=== PATIENT | female | born 1980 | race Caucasian/White ===

== ENCOUNTER 2019-02-08 17:21 | Inpatient (IN) ==
--- NOTE | 2019-02-08 19:54 | DR.URINEF ---
HPI <JOSE MARTIN REEDER - Last Filed: 02/09/19 12:25> Time Seen Time Seen by Provider: 02/08/19 19:53 PCP Primary Care Physician: RAVEN HPI Comment HPI Comment: PATIENT SEEN AND WORK BY DR. MARES. SEE HER H&P. Complaint Chief Complaint:: PT. C/O RECURRENT UTI'S WHICH ARE NOT GETTING BETTER AFTER TWO ROUNDS OF ANTIBIOTICS. PT. STATES SHE HAS HAD A UTI FOR 4-5 WEEKS AND HAS BEEN ON CIPRO AND BACTRIM AND SHE IS NOT GETTING ANY BETTER. PT. STATES SHE NORMALLY HAS TO HAVE IV ANTIBIOTICS TO CLEAR UP THE UTI. PT. JUST FOUND OUT SHE WAS , HAD A POSITIVE AT HOME TEST. Source History Provided: Patient Mode of Arrival Mode of Arrival: Ambulatory Timing Onset of Chief Complaint: 01/04/19 <Diana Mares - Last Filed: 02/08/19 22:50> HPI Comment HPI Comment: Pt with recurrent uti treated three times in the past month or so - twice in [facility] and once here and still w/sxs now complicated by n/v/f/c for the past two days; she had a recent pos home [place] and is concerned because she miscarried two years ago after becoming septic w/a uti; say her pcp this morning with blood work but believes uti is resistant and she will need to be in hospital. 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) Lives With: Significant Other Lives Where: Home infectious screening In the last 2 months have you had wt loss of >10#?: NO Have you had fever, night sweats or hemotysis?: No Have you traveled outside the country in the last 6 months?: No Isolation: Standard <Diana Mares - Last Filed: 02/08/19 22:50> PM Past Medical History: Yes Past Medical History Comment: recurrent uti <Diana Vishnu - Last Filed: 02/08/19 22:50> Review of Systems Constitutional: See HPI, Fever and Malaise Eyes: No Symptoms Reported; negative See HPI, Eye Pain, Blurred Vision, Tearing, Discharge, Photophobia, Diplopia and Other ENTM: No Symptoms Reported, See HPI, Ear Pain, Pulling on Ears, Hearing Loss, Nose Discharge, Epistaxis, Mouth Swelling, Throat Pain and Tooth/Dental Pain Respiratoy: No Symptoms Reported, See HPI, Productive Cough, Moist Cough, Dry Cough, Hacking Cough, Barking Cough, Brassy Cough, Orthopnea, Stridor and Other; negative Non-Productive Cough, Short of Breath, Wheezing and Hemoptysis Cardiovascular: No Symptoms Reported, See HPI and Other; negative Chest Pain, Edema, Palpitations, Syncope, Cyanosis and Skin Mottling Gastrointestinal/Abdominal: See HPI, Abdominal Pain and Nausea Genitourinary: See HPI, Dysuria, Frequency and Pain Musculoskeletal: No Symptoms Reported Integumentary: No Symptoms Reported Hematologic/Lymphatic: No Symptoms Reported Psychiatric: Anxiety PE <JOSE MARTIN REEDER - Last Filed: 02/09/19 12:25> Vital Signs Vitals: Temperature 97.1 F Pulse Rate 79 Respiratory Rate 22 Blood Pressure [Left Arm] 109/60 Blood Pressure 108/72 O2 Sat by Pulse Oximetry 98 <Diana Mares - Last Filed: 02/08/19 22:50> Vital Signs Vitals: Temperature 97.1 F Pulse Rate 79 Respiratory Rate 22 Blood Pressure [Left Arm] 109/60 Blood Pressure 108/72 O2 Sat by Pulse Oximetry 98 General Limitations: No Limitations General Appearance: Alert, In No Apparent Distress and Anxious Head Head Exam: Normal Inspection and Atraumatic Eyes Eye exam: Normal Appearance and PERRL ENT ENT Exam: Normal Exam Neck Neck Exam: Normal Inspection Chest Chest Inspection: Normal Inspection Respiratory Respiratory Exam: Normal Lung Sounds Bilat Respiratory Exam: Bilateral: Clear to Auscultation Cardiovascular Cardiovascular Exam: Regular Rate and Normal Rhythm Abdominal Exam Abdominal Exam: Normal Inspection Abdominal Tenderness: Suprapubic and Mild Extremities Extremities Exam: Normal Inspection Back Back Exam: Normal Inspection, (R) CVA Tenderness and (L) CVA Tenderness Neurologic Neurological Exam: Alert, Oriented X3, CN II-XII Intact and Normal Gait Psychiatric Psychiatric Exam: Normal Affect Skin Skin Exam: Warm and Normal Color <Diana Mares - Last Filed: 02/08/19 22:50> Reevaluation 1st: Improved (goes outside twice during her stay, once to get emergency room clinician out of car and once with friend) ROR <JOSE MARTIN REEDER - Last Filed: 02/09/19 12:25> Labs Reviewed Result Diagrams: 02/09/19 09:02 02/09/19 09:02 Laboratory: 02/08/19 20:25 Urine,Clean Catch Urine Culture - Preliminary WBC 3.8 X10^3/uL (3.6-10.0) 02/08/19 20:20 RBC 4.10 X10^6/uL (3.5-5.4) 02/08/19 20:20 Hgb 11.9 g/dL (12.0-16.0) L 02/08/19 20:20 Hct 34.3 % (36.0-47.0) L 02/08/19 20:20 MCV 83.5 fL (80.0-100.0) 02/08/19 20:20 MCH 28.9 pg (27.0-34.0) 02/08/19 20:20 MCHC 34.6 g/dL (33.0-35.0) 02/08/19 20:20 RDW 15.6 % (11.6-16.5) 02/08/19 20:20 Plt Count 138 X10^3/uL (150.0-450.0) L 02/08/19 20:20 MPV 7.9 fL (7.4-11.0) 02/08/19 20:20 Neut % (Auto) 62.6 % (42.0-75.0) 02/08/19 20:20 Lymph % (Auto) 27.3 % (21.0-51.0) 02/08/19 20:20 Allen % (Auto) 9.0 % (0.0-13.0) 02/08/19 20:20 Eos % (Auto) 0.9 % (0.9-2.9) 02/08/19 20:20 Baso % (Auto) 0.2 % (0.2-1.0) 02/08/19 20:20 Neut # (Auto) 2.4 x10^3/uL (2.2-4.8) 02/08/19 20:20 Lymph # (Auto) 1.0 X10^3/uL (1.3-2.9) L 02/08/19 20:20 Allen # (Auto) 0.3 x10^3/uL (0.3-0.8) 02/08/19 20:20 Eos # (Auto) 0.0 x10^3/uL (0.0-0.2) 02/08/19 20:20 Baso # (Auto) 0.0 X10^3/uL (0.0-0.1) 02/08/19 20:20 Absolute Nucleated RBC 0.0 /100WBC 02/08/19 20:20 Sodium 137 mmol/L (136-145) 02/08/19 20:20 Corrected Sodium TNP 02/08/19 20:20 Potassium 4.1 mmol/L (3.5-5.1) 02/08/19 20:20 Chloride 103 mmol/L (98-107) 02/08/19 20:20 Carbon Dioxide 27.7 mmol/L (21-32) 02/08/19 20:20 BUN 10 mg/dL (7-18) 02/08/19 20:20 Creatinine 0.53 mg/dL (0.55-1.02) L 02/08/19 20:20 Est GFR (MDRD) Af Amer > 60 (>60) 02/08/19 20:20 Est GFR (MDRD) Non-Af > 60 (>60) 02/08/19 20:20 Glucose 103 mg/dL (65-99) H 02/08/19 20:20 Calcium 8.9 mg/dL (8.5-10.1) 02/08/19 20:20 Corrected Calcium 9.7 mg/dL (8.5-10.1) 02/08/19 20:20 Total Bilirubin 0.60 mg/dL (0.2-1.0) 02/08/19 20:20 AST 178 Units/L (15-37) H 02/08/19 20:20 ALT 264 Units/L (12-78) H 02/08/19 20:20 Alkaline Phosphatase 73 Units/L (46-116) 02/08/19 20:20 Total Protein 6.9 g/dL (6.4-8.2) 02/08/19 20:20 Albumin 3.0 g/dL (3.4-5.0) L 02/08/19 20:20 Globulin 3.9 g/dL (2.5-4.5) 02/08/19 20:20 Albumin/Globulin Ratio 0.8 Ratio (1.1-2.1) L 02/08/19 20:20 HCG, Quant 88448 mIU/mL (0-6) H 02/08/19 20:20 Specimen Type Clean catch urine 02/08/19 20:25 Urine Color Dark yellow (YELLOW) 02/08/19 20: Urine Appearance Cloudy (CLEAR) 02/08/19 20: Urine pH 6.5 (5.0 - 8.0) 02/08/19 20:25 Ur Specific [place] 1.020 (1.000-1.030) 02/08/19 20:25 Urine Protein 1+ (NEGATIVE) 02/08/19 20:25 Urine Glucose (UA) Negative (NEGATIVE) 02/08/19 20:25 Urine Ketones Negative (NEGATIVE) 02/08/19 20:25 Urine Occult Blood 1+ (NEGATIVE) 02/08/19 20:25 Urine Nitrite Positive (NEGATIVE) 02/08/19 20:25 Urine Bilirubin Negative (NEGATIVE) 02/08/19 20:25 Urine Urobilinogen 1+ (NORMAL) 02/08/19 20:25 Ur Leukocyte Esterase 3+ (NEGATIVE) 02/08/19 20:25 Urine RBC 5-10 /HPF (0-3) A 02/08/19 20:25 Urine WBC 30-50 /HPF (0-5) A 02/08/19 20:25 Ur Squamous Epith Cells Many /HPF (NEGATIVE) 02/08/19 20:25 Urine Bacteria 3+ /HPF (NEGATIVE) 02/08/19 20:25 Ur Culture Indicated? Yes/culture set up 02/08/19 20:25 <Diana Mares - Last Filed: 02/08/19 22:50> Labs Reviewed Laboratory Results Reviewed?: Yes Laboratory: 02/08/19 20:25 Urine,Clean Catch Urine Culture - Preliminary WBC 3.8 X10^3/uL (3.6-10.0) 02/08/19 20:20 RBC 4.10 X10^6/uL (3.5-5.4) 02/08/19 20:20 Hgb 11.9 g/dL (12.0-16.0) L 02/08/19 20:20 Hct 34.3 % (36.0-47.0) L 02/08/19 20:20 MCV 83.5 fL (80.0-100.0) 02/08/19 20:20 MCH 28.9 pg (27.0-34.0) 02/08/19 20:20 MCHC 34.6 g/dL (33.0-35.0) 02/08/19 20:20 RDW 15.6 % (11.6-16.5) 02/08/19 20:20 Plt Count 138 X10^3/uL (150.0-450.0) L 02/08/19 20:20 MPV 7.9 fL (7.4-11.0) 02/08/19 20:20 Neut % (Auto) 62.6 % (42.0-75.0) 02/08/19 20:20 Lymph % (Auto) 27.3 % (21.0-51.0) 02/08/19 20:20 Allen % (Auto) 9.0 % (0.0-13.0) 02/08/19 20:20 Eos % (Auto) 0.9 % (0.9-2.9) 02/08/19 20:20 Baso % (Auto) 0.2 % (0.2-1.0) 02/08/19 20:20 Neut # (Auto) 2.4 x10^3/uL (2.2-4.8) 02/08/19 20:20 Lymph # (Auto) 1.0 X10^3/uL (1.3-2.9) L 02/08/19 20:20 Allen # (Auto) 0.3 x10^3/uL (0.3-0.8) 02/08/19 20:20 Eos # (Auto) 0.0 x10^3/uL (0.0-0.2) 02/08/19 20:20 Baso # (Auto) 0.0 X10^3/uL (0.0-0.1) 11/25/19 20:20 Absolute Nucleated RBC 0.0 /100WBC 02/08/19 20:20 Sodium 137 mmol/L (136-145) 02/08/19 20:20 Corrected Sodium TNP 02/08/19 20:20 Potassium 4.1 mmol/L (3.5-5.1) 02/08/19 20:20 Chloride 103 mmol/L (98-107) 02/08/19 20:20 Carbon Dioxide 27.7 mmol/L (21-32) 02/08/19 20:20 BUN 10 mg/dL (7-18) 02/08/19 20:20 Creatinine 0.53 mg/dL (0.55-1.02) L 02/08/19 20:20 Est GFR (MDRD) Af Amer > 60 (>60) 02/08/19 20:20 Est GFR (MDRD) Non-Af > 60 (>60) 02/08/19 20:20 Glucose 103 mg/dL (65-99) H 02/08/19 20:20 Calcium 8.9 mg/dL (8.5-10.1) 02/08/19 20:20 Corrected Calcium 9.7 mg/dL (8.5-10.1) 02/08/19 20:20 Total Bilirubin 0.60 mg/dL (0.2-1.0) 02/08/19 20:20 AST 178 Units/L (15-37) H 02/08/19 20:20 ALT 264 Units/L (12-78) H 02/08/19 20:20 Alkaline Phosphatase 73 Units/L (46-116) 02/08/19 20:20 Total Protein 6.9 g/dL (6.4-8.2) 02/08/19 20:20 Albumin 3.0 g/dL (3.4-5.0) L 02/08/19 20:20 Globulin 3.9 g/dL (2.5-4.5) 02/08/19 20:20 Albumin/Globulin Ratio 0.8 Ratio (1.1-2.1) L 02/08/19 20:20 HCG, Quant 21007 mIU/mL (0-6) H 02/08/19 20:20 Specimen Type Clean catch urine 02/08/19 20:25 Urine Color Dark yellow (YELLOW) 02/08/19 20:25 Urine Appearance Cloudy (CLEAR) 02/08/19 20:25 Urine pH 6.5 (5.0 - 8.0) 02/08/19 20:25 Ur Specific [place] 1.020 (1.000-1.030) 02/08/19 20:25 Urine Protein 1+ (NEGATIVE) 02/08/19 20:25 Urine Glucose (UA) Negative (NEGATIVE) 02/08/19 20:25 Urine Ketones Negative (NEGATIVE) 02/08/19 20:25 Urine Occult Blood 1+ (NEGATIVE) 02/08/19 20:25 Urine Nitrite Positive (NEGATIVE) 02/08/19 20: Urine Bilirubin Negative (NEGATIVE) 02/08/19 20:25 Urine Urobilinogen 1+ (NORMAL) 02/08/19 20:25 Ur Leukocyte Esterase 3+ (NEGATIVE) 02/08/19 20:25 Urine RBC 5-10 /HPF (0-3) A 02/08/19 20:25 Urine WBC 30-50 /HPF (0-5) A 02/08/19 20:25 Ur Squamous Epith Cells Many /HPF (NEGATIVE) 02/08/19 20:25 Urine Bacteria 3+ /HPF (NEGATIVE) 02/08/19 20:25 Ur Culture Indicated? Yes/culture set up 02/08/19 20:25 Opioid <JOSE MARTIN REEDER - Last Filed: 02/09/19 12:25> Opioid Risk Tool Age (Tejinder box if 16-45): Yes History of Preadolescent Sexual Abuse: No Total: 1 Total Score Risk Category: Low Risk Copyright: Surinder ANDREWS predicting aberrant behaviors <Diana Mares - Last Filed: 02/08/19 22:50> Opioid Risk Tool Total: 0 Total Score Risk Category: Low Risk <JOSE MARTIN REEDER - Last Filed: 02/09/19 12:25> Diagnosis Discharge Problem: Pyelonephritis, Nausea, Elevated LFTs, Instructions Forms: Excuse From Work Patient Portal
[2019-02-08 20:26] LABS: BASOPHILS % (AUTO) 0.2 % (0.2-1.0); EOSINOPHILS % (AUTO) 0.9 % (0.9-2.9); HEMATOCRIT 34.3 % (36.0-47.0); HEMOGLOBIN 11.9 g/dL (12.0-16.0); LYMPHOCYTES % (AUTO) 27.3 % (21.0-51.0); MEAN CORPUSCULAR HEMOGLOBIN 28.9 pg (27.0-34.0); MEAN CORPUSCULAR HGB CONC 34.6 g/dL (33.0-35.0); MEAN CORPUSCULAR VOLUME 83.5 fL (80.0-100.0); MEAN PLATELET VOLUME 7.9 fL (7.4-11.0); MONOCYTES # (AUTO) 0.3 x10^3/uL (0.3-0.8); NEUTROPHILS # (AUTO) 2.4 x10^3/uL (2.2-4.8); NEUTROPHILS % (AUTO) 62.6 % (42.0-75.0); PLATELET COUNT 138 X10^3/uL (150.0-450.0); RED CELL DISTRIBUTION WIDTH 15.6 % (11.6-16.5); WHITE BLOOD COUNT 3.8 X10^3/uL (3.6-10.0)
[2019-02-08 20:34] LABS: BILIRUBIN,URINE NEGATIVE (NEGATIVE); BLOOD/HEMOGLOBIN,URINE 1+ (NEGATIVE); GLUCOSE, URINE NEGATIVE (NEGATIVE); KETONES,URINE NEGATIVE (NEGATIVE); LEUKOCYTE ESTERASE ,URINE 3+ (NEGATIVE); NITRITES,URINE POSITIVE (NEGATIVE); PH,URINE 6.5 (5.0 - 8.0); PROTEIN,URINE 1+ (NEGATIVE); UROBILINOGEN,URINE 1+ (NORMAL)
[2019-02-08 20:37] LABS: ALANINE AMINOTRANSFERASE 264 Units/L (12-78); ALKALINE PHOSPHATASE 73 Units/L (46-116); ASPARTATE AMINO TRANSFERASE 178 Units/L (15-37); BLOOD UREA NITROGEN 10 mg/dL (7-18); CALCIUM 8.9 mg/dL (8.5-10.1); CARBON DIOXIDE 27.7 mmol/L (21-32); CHLORIDE 103 mmol/L (98-107); COR CA(FOR HYPOALB) 9.7 mg/dL (8.5-10.1); CREATININE 0.53 mg/dL (0.55-1.02); SODIUM 137 mmol/L (136-145); TOTAL PROTEIN 6.9 g/dL (6.4-8.2); eGFR NON BLACK RACES > 60 (>60)
[2019-02-08 21:37] LABS: APPEARANCE,URINE CLOUDY (CLEAR); BACTERIA,URINE 3+ /HPF (NEGATIVE); COLOR,URINE DARK YELLOW (YELLOW); SQUAMOUS EPITHELIAL CELL,UR MANY /HPF (NEGATIVE)
[2019-02-08 21:47] LABS: HCG,QUANTITATIVE 96243 mIU/mL (0-6)
[2019-02-08] MEDS ORDERED: ZOFRAN INJ 4 MG VIAL IVP ONE (22:30)
[2019-02-08] MEDS ORDERED: ROCEPHIN VIAL 1 GRAM IV ONE (22:30)
[2019-02-08] MEDS ORDERED: ZOFRAN INJ 4 MG VIAL ONE (22:43)
[2019-02-08] MEDS ORDERED: ROCEPHIN VIAL 1 GRAM ONE (22:44)
[2019-02-08] MEDS: NS 1000 ML 1,000 ML IV SCH (23:20)
[2019-02-09] MEDS ORDERED: ZOFRAN INJ 4 MG VIAL IVP PRN (01:44)
[2019-02-09 02:12] VITALS: BMI 22.9
[2019-02-09] MEDS ORDERED: TYLENOL #3 TAB (W/CODEINE) PO ONE (04:22)
[2019-02-09] MEDS: ROCEPHIN VIAL 1 GRAM 1 G in NS 100 ML IV + SPIKE MINIBAG* 100 ML IV SCH ×2 (04:32→10:05)
[2019-02-09] MEDS: TYLENOL #3 TAB (W/CODEINE) PO PRN ×2 (04:33→21:25)
[2019-02-09 09:18] LABS: BASOPHILS % (AUTO) 0.4 % (0.2-1.0); EOSINOPHILS % (AUTO) 0.8 % (0.9-2.9); HEMATOCRIT 30.9 % (36.0-47.0); HEMOGLOBIN 10.9 g/dL (12.0-16.0); LYMPHOCYTES # (AUTO) 1.4 X10^3/uL (1.3-2.9); LYMPHOCYTES % (AUTO) 37.8 % (21.0-51.0); MEAN CORPUSCULAR HEMOGLOBIN 29.2 pg (27.0-34.0); MEAN CORPUSCULAR HGB CONC 35.2 g/dL (33.0-35.0); MEAN CORPUSCULAR VOLUME 82.8 fL (80.0-100.0); MEAN PLATELET VOLUME 8.1 fL (7.4-11.0); MONOCYTES # (AUTO) 0.3 x10^3/uL (0.3-0.8); MONOCYTES % (AUTO) 9.2 % (0.0-13.0); NEUTROPHILS # (AUTO) 1.9 x10^3/uL (2.2-4.8); NEUTROPHILS % (AUTO) 51.8 % (42.0-75.0); PLATELET COUNT 119 X10^3/uL (150.0-450.0); RED BLOOD COUNT 3.73 X10^6/uL (3.5-5.4); RED CELL DISTRIBUTION WIDTH 15.4 % (11.6-16.5); WHITE BLOOD COUNT 3.7 X10^3/uL (3.6-10.0)
[2019-02-09 09:20] LABS: ALANINE AMINOTRANSFERASE 197 Units/L (12-78); ALBUMIN 2.3 g/dL (3.4-5.0); ALKALINE PHOSPHATASE 72 Units/L (46-116); ASPARTATE AMINO TRANSFERASE 102 Units/L (15-37); BLOOD UREA NITROGEN 13 mg/dL (7-18); CALCIUM 7.9 mg/dL (8.5-10.1); CARBON DIOXIDE 26.1 mmol/L (21-32); CHLORIDE 107 mmol/L (98-107); COR CA(FOR HYPOALB) 9.3 mg/dL (8.5-10.1); CREATININE 0.55 mg/dL (0.55-1.02); SODIUM 138 mmol/L (136-145); TOTAL PROTEIN 5.6 g/dL (6.4-8.2); eGFR NON BLACK RACES > 60 (>60)
[2019-02-09] MEDS ORDERED: ZOSYN VIAL 3.375 GRAMS 3.375 G in NS 100 ML IV + SPIKE MINIBAG* 100 ML IV SCH (09:23)
[2019-02-09] MEDS ORDERED: MERREM VIAL IVP SCH (10:00)
[2019-02-09] MEDS: PRENATAL PLUS PO SCH (10:06)
[2019-02-09] MEDS: METHADONE HCL PO SCH (12:46)
[2019-02-09] MEDS: NICOTINE PATCH TD SCH (12:47)
[2019-02-09] MEDS: NS 1000 ML 1,000 ML IV SCH (14:05)
[2019-02-09] MEDS: MERREM VIAL 1 G in NS 100 ML IV + SPIKE MINIBAG* 100 ML IV SCH ×2 (14:05→21:21)
--- NOTE | 2019-02-09 14:56 | US ---
History: with no care Study: Ob ultrasound Comparison: None Findings: There is a single intrauterine in a cephalic presentation with a heart rate of 147 beats per minute. There is a posterior placenta. Normal four-chamber heart and three-vessel cord and kidneys and stomach and bladder and spine are demonstrated. There is a normal amount of amniotic fluid. BPD: 2.62 cm, 14 weeks 4 days HC: 8.86 cm, 14 weeks AC: 7.49 cm, 14 weeks FL: 1.22 cm, 13 weeks 4 days [place]-rump length: 7.64 cm, 13 weeks 5 days EFW: 84 g Impression: Single viable 14 week intrauterine for an HAILEY of August 09 Reported By:
[2019-02-10] MEDS: NS 1000 ML 1,000 ML IV SCH (04:45)
[2019-02-10 05:02] LABS: BASOPHILS % (AUTO) 0.4 % (0.2-1.0); EOSINOPHILS # (AUTO) 0.1 x10^3/uL (0.0-0.2); EOSINOPHILS % (AUTO) 1.3 % (0.9-2.9); HEMATOCRIT 31.3 % (36.0-47.0); HEMOGLOBIN 11.2 g/dL (12.0-16.0); LYMPHOCYTES # (AUTO) 2.4 X10^3/uL (1.3-2.9); LYMPHOCYTES % (AUTO) 45.6 % (21.0-51.0); MEAN CORPUSCULAR HEMOGLOBIN 29.9 pg (27.0-34.0); MEAN CORPUSCULAR HGB CONC 35.7 g/dL (33.0-35.0); MEAN CORPUSCULAR VOLUME 83.8 fL (80.0-100.0); MEAN PLATELET VOLUME 8.6 fL (7.4-11.0); MONOCYTES # (AUTO) 0.4 x10^3/uL (0.3-0.8); MONOCYTES % (AUTO) 7.2 % (0.0-13.0); NEUTROPHILS # (AUTO) 2.4 x10^3/uL (2.2-4.8); NEUTROPHILS % (AUTO) 45.5 % (42.0-75.0); PLATELET COUNT 131 X10^3/uL (150.0-450.0); RED BLOOD COUNT 3.73 X10^6/uL (3.5-5.4); RED CELL DISTRIBUTION WIDTH 15.6 % (11.6-16.5); WHITE BLOOD COUNT 5.3 X10^3/uL (3.6-10.0)
[2019-02-10 05:11] LABS: ALANINE AMINOTRANSFERASE 135 Units/L (12-78); ALBUMIN 2.1 g/dL (3.4-5.0); ALKALINE PHOSPHATASE 64 Units/L (46-116); ASPARTATE AMINO TRANSFERASE 44 Units/L (15-37); BLOOD UREA NITROGEN 8 mg/dL (7-18); CALCIUM 7.6 mg/dL (8.5-10.1); CARBON DIOXIDE 23.5 mmol/L (21-32); CHLORIDE 106 mmol/L (98-107); COR CA(FOR HYPOALB) 9.1 mg/dL (8.5-10.1); SODIUM 138 mmol/L (136-145); TOTAL PROTEIN 5.2 g/dL (6.4-8.2); eGFR NON BLACK RACES > 60 (>60)
[2019-02-10] MEDS: MERREM VIAL 1 G in NS 100 ML IV + SPIKE MINIBAG* 100 ML IV SCH (05:25)
[2019-02-10] MEDS: METHADONE HCL PO SCH (09:30)
[2019-02-10] MEDS: PRENATAL PLUS PO SCH (09:30)
[2019-02-10] MEDS: NICOTINE PATCH TD SCH (09:43)
[2019-02-10 11:33] VITALS: BP 110/46
== END 2019-02-10 09:40 | disposition home or self-care (01) | DRG 690 ==
LOC: ER 17:31 → MED/SURG 02-09 00:55
PROVIDERS: ADMIT Obstetrics & Gynecology Obstetrics; ATTEND Obstetrics & Gynecology Obstetrics
CPT/HCPCS: 36415; 76805; 80053; 81001; 84702; 85025; 87040; 87086; 87088; 87186; 96365; 96374; 96375; 99284; A4222; S0109; S0197; J0696; J2185; J2405; J7030; J7050

== ENCOUNTER 2024-02-15 00:09 | Inpatient (IN) ==
[2024-02-15 00:42] VITALS: BMI 31.4
[2024-02-15] MEDS: D5 1/2 NS 1,000 ML 1,000 ML IV SCH (00:47)
[2024-02-15 00:52] LABS: BILIRUBIN,URINE 1+ (NEGATIVE); BLOOD/HEMOGLOBIN,URINE 4+ (NEGATIVE); GLUCOSE, URINE NEGATIVE (NEGATIVE); KETONES,URINE NEGATIVE (NEGATIVE); LEUKOCYTE ESTERASE ,URINE 1+ (NEGATIVE); NITRITES,URINE NEGATIVE (NEGATIVE); PROTEIN,URINE 2+ (NEGATIVE); UROBILINOGEN,URINE 3+ (NORMAL)
[2024-02-15 00:54] LABS: AMNISURE ROM TEST THERE IS A RUPTURE (NO RUPTURE); APPEARANCE,URINE CLOUDY (CLEAR); COLOR,URINE DARK YELLOW (YELLOW)
[2024-02-15 00:59] LABS: BASOPHILS % (AUTO) 0.5 % (0.2-1.0); EOSINOPHILS # (AUTO) 0.1 x10^3/uL (0.0-0.2); EOSINOPHILS % (AUTO) 0.6 % (0.9-2.9); HEMATOCRIT 33.5 % (36.0-47.0); HEMOGLOBIN 11.5 g/dL (12.0-16.0); LYMPHOCYTES # (AUTO) 1.9 X10^3/uL (1.3-2.9); LYMPHOCYTES % (AUTO) 21.1 % (21.0-51.0); MEAN CORPUSCULAR HEMOGLOBIN 27.5 pg (27.0-34.0); MEAN CORPUSCULAR HGB CONC 34.3 g/dL (33.0-35.0); MEAN PLATELET VOLUME 9.2 fL (7.4-11.0); MONOCYTES # (AUTO) 0.7 x10^3/uL (0.3-0.8); NEUTROPHILS # (AUTO) 6.4 x10^3/uL (2.2-4.8); NEUTROPHILS % (AUTO) 69.8 % (42.0-75.0); PLATELET COUNT 226 X10^3/uL (150.0-450.0); RED BLOOD COUNT 4.19 X10^6/uL (3.5-5.4); RED CELL DISTRIBUTION WIDTH 14.3 % (11.6-16.5); WHITE BLOOD COUNT 9.2 X10^3/uL (3.6-10.0)
[2024-02-15 01:10] LABS: BACTERIA,URINE TRACE /HPF (NEGATIVE); SQUAMOUS EPITHELIAL CELL,UR RARE /HPF (NEGATIVE); TRANSITIONAL EPI CELLS,URINE RARE /HPF (NEGATIVE)
[2024-02-15] MEDS: OXYTOCIN 20 UNIT/1,000 ML-NS 20 UNIT/1,000 ML PLAST..BAG IV SCH (01:16)
[2024-02-15] MEDS: PITOCIN ONE (01:16)
[2024-02-15 01:19] LABS: ALANINE AMINOTRANSFERASE 18 Units/L (12-78); ALBUMIN 2.4 g/dL (3.4-5.0); ALKALINE PHOSPHATASE 238 Units/L (46-116); ASPARTATE AMINO TRANSFERASE 21 Units/L (15-37); BLOOD UREA NITROGEN 12 mg/dL (7-18); CALCIUM 8.7 mg/dL (8.5-10.1); CARBON DIOXIDE 22.9 mmol/L (21-32); CHLORIDE 103 mmol/L (98-107); CREATININE 0.81 mg/dL (0.55-1.02); GLUCOSE 96 mg/dL (65-99); POTASSIUM 3.8 mmol/L (3.5-5.1); SODIUM 138 mmol/L (136-145); TOTAL PROTEIN 7.1 g/dL (6.4-8.2); eGFR NON BLACK RACES > 60 (>60)
[2024-02-15] MEDS ORDERED: OXYTOCIN 20 UNIT/1,000 ML-NS 20 UNIT/1,000 ML PLAST..BAG IV PRN (01:34)
[2024-02-15] MEDS ORDERED: REGLAN INJ 10 MG VIAL IVP PRN (01:34)
[2024-02-15] MEDS ORDERED: MILK OF MAGNESIA PO PRN (02:17)
[2024-02-15] MEDS: MOTRIN TAB 800 MG PO PRN (03:35)
[2024-02-15] MEDS: DERMOPLAST PAIN RELIEF SPRAY TOP PRN (04:00)
[2024-02-15] MEDS: NICOTINE PATCH TD SCH (04:00)
[2024-02-15 05:35] LABS: HEMATOCRIT 32.4 % (36.0-47.0); HEMOGLOBIN 11.1 g/dL (12.0-16.0)
[2024-02-15 06:36] LABS: RAPID PLASMA REAGIN NONREACTIVE (NONREACTIVE)
[2024-02-15] MEDS: PRENATAL PLUS PO SCH (08:59)
[2024-02-15] MEDS: MYLICON TAB 80 MG CHEW PO ONE (21:00)
[2024-02-16] MEDS: PITOCIN IVP ONE (10:02)
[2024-02-16 16:25] VITALS: BP 127/65; PULSE 73; RESP 20; TEMP 98.1; O2SAT 97
[2024-02-16] MEDS ORDERED: DEXTROSE 10% 250 ML IV SCH (20:10)
== END 2024-02-16 19:00 | disposition home or self-care (01) | DRG 807 ==
LOC: ER 00:09 → LD 00:58 → MED/SURG 02:23
PROVIDERS: ADMIT Obstetrics & Gynecology Obstetrics; ATTEND Obstetrics & Gynecology Obstetrics
DX: Z72.0 Tobacco use; Z3A.40 40 weeks gestation of pregnancy; Z37.0 Single live birth; O70.0 First degree perineal laceration during delivery; B19.20 Unspecified viral hepatitis C without hepatic coma; O98.42 Viral hepatitis complicating childbirth